=== PATIENT | male | born 1950 | race African-American/Black ===

== ENCOUNTER 2017-01-07 05:39 | Day surgery (SDC) | payer OTHER, MEDICARE ==
[2017-01-06 11:00] VITALS: BMI 30.7
[~2017-01-07] VITALS: Ht 180.3 cm; Wt 104.0 kg
[2017-01-07] VITALS (10 sets, daily range): BP systolic 132–160; BP diastolic 76–94; PULSE 82–91; RESP 10–18; Ht 180.3 cm; Wt 104.0 kg
--- NOTE | 2017-01-07 03:51 | PREOPHP ---
DATE OF ADMISSION: 01/07/2017 HISTORY OF PRESENT ILLNESS: This 66-year-old patient is admitted for elective cataract surgery of the left eye. The patient has had progressive deterioration of vision in the left eye over the past year and previously underwent cataract surgery on the right eye 1-2 years ago with good visual result. The patient has a positive systemic history of hypertension and diabetes mellitus. MEDICATIONS: Includes amlodipine, and metformin. ALLERGIES: PENICILLIN. PHYSICAL EXAMINATION: EYES: On examination, visual acuity with best correction is 20/25 in the right eye and 20/60 in the left eye. Slit lamp examination reveals a posterior chamber intraocular lens in the right eye and an advanced nuclear sclerotic cataract in the left eye. Applanation tonometry is 15 mmHg in both eyes. Examination of the retina appears within normal limits. DIAGNOSIS: Cataract, left eye. PLAN: Cataract extraction with lens implant, left eye. The risks and alternatives of surgery have been discussed with the patient as well as the hope for improvement of visual acuity leading to greater ability to perform activities of daily living. Patient understands this and agrees to proceed with surgery. Dictated By: Bao Garcia MD /[email or web address]/sloan /Document#: [id number]
[2017-01-07] MEDS ORDERED: DICLOFENAC 0.1% 2.5 ML OPH OPER SCH (06:00)
[2017-01-07] MEDS ORDERED: CIPROFLOXACIN 0.3% 2.5 ML OPH OPER SCH (06:00)
[2017-01-07] MEDS ORDERED: CYCLOPENTOLATE/PHENYLEPH 2 ML OPH OPER SCH (06:00)
[2017-01-07] MEDS ORDERED: TROPICAMIDE 1% 2 ML OPH OPER SCH (06:00)
[2017-01-07] MEDS ORDERED: GENTAMICIN 80 MG INJ ONE (06:04)
[2017-01-07] MEDS ORDERED: CARBACHOL 0.01% 1.5 ML OPH INJ ONE ×2 (06:04→07:17)
[2017-01-07] MEDS ORDERED: DEXAMETHASONE 4 MG/ML 1 ML INJ ONE (06:05)
[2017-01-07] MEDS ORDERED: LIDOCAINE 4% (MPF) 5 ML INJ ONE (06:05)
[2017-01-07] MEDS ORDERED: EPINEPHrine 1 MG INJ ONE (06:06)
[2017-01-07 06:17] LABS: ADD SCAN DIFF NO
[2017-01-07 06:20] LABS: ADD UMIC NO; UR ASCORBIC ACID NEGATIVE (NEGATIVE); UR BILIRUBIN (Dip) NEGATIVE (NEGATIVE); UR BLOOD (Dip) NEGATIVE (NEGATIVE); UR CLARITY CLEAR (CLEAR); UR COLOR YELLOW (YELLOW); UR GLUCOSE (Dip) NEGATIVE (NEGATIVE); UR KETONES (Dip) NEGATIVE (NEGATIVE); UR LEUKOCYTE ESTERASE (Dip) NEGATIVE Leu/ul (NEGATIVE); UR NITRITE (Dip) NEGATIVE (NEGATIVE); UR SPECIFIC GRAVITY (Dip) 1.015 (1.003-1.030); UR TOTAL PROTEIN (Dip) NEGATIVE (NEGATIVE); UR UROBILINOGEN (Dip) NEGATIVE (NEGATIVE)
[2017-01-07 06:21] LABS: BASOPHIL # 0.1 10^3/ul (0.0-0.1); BASOPHILS % 0.7 % (0.0-2.0); EOSINOPHILS # 0.3 10^3/ul (0.0-0.5); EOSINOPHILS % 3.4 % (0.0-7.0); HEMATOCRIT 42.1 % (42.0-52.0); HEMOGLOBIN 14.2 g/dl (14.0-18.0); LYMPHOCYTES # 4.1 10^3/ul (0.8-2.9); LYMPHOCYTES % 45.4 % (15.0-51.0); MEAN CORPUSCULAR HEMOGLOBIN 29.4 pg (29.0-33.0); MEAN CORPUSCULAR HGB CONC 33.7 g/dl (32.0-37.0); MEAN CORPUSCULAR VOLUME 87.2 fl (82.0-101.0); MEAN PLATELET VOLUME 10.5 fl (7.4-10.4); MONOCYTE # 0.6 10^3/ul (0.3-0.9); MONOCYTES % 6.4 % (0.0-11.0); NEUTROPHIL # 3.9 10^3/ul (1.6-7.5); NEUTROPHILS % 43.9 % (39.0-77.0); PLATELET COUNT 326 10^3/UL (140-415); RED BLOOD COUNT 4.83 10^6/ul (4.70-6.10); RED CELL DISTRIBUTION WIDTH 13.4 % (11.5-14.5)
[2017-01-07 06:38] LABS: INR 0.95; PROTIME 12.7 Sec (12.2-14.2)
[2017-01-07 06:39] LABS: PARTIAL THROMBOPLASTIN TIME 33.7 Sec (25.0-35.0)
[2017-01-07] MEDS ORDERED: CARBACHOL 0.01% 1.5 ML OPH INJ IO ONE (06:44)
[2017-01-07] MEDS ORDERED: GENTAMICIN 80 MG INJ INJ ONE (06:45)
[2017-01-07] MEDS ORDERED: DEXAMETHASONE 4 MG/ML 1 ML INJ INJ ONE (06:45)
[2017-01-07] MEDS ORDERED: HYALURONATE/CHONDROITIN 1ML OPH INJ IO ONE (06:46)
[2017-01-07 06:56] LABS: CREATININE 0.99 mg/dl (0.61-1.24); POTASSIUM 3.8 mmol/L (3.5-5.1)
[2017-01-07] MEDS ORDERED: HYALURONATE/CHONDROITIN 1ML OPH INJ ONE (07:17)
[2017-01-07] MEDS ORDERED: FENTAnyl 50 MCG/ML VIAL ONE (07:26)
[2017-01-07] MEDS ORDERED: METF1000 PO (07:37)
[2017-01-07] MEDS ORDERED: AMLO-147 PO (07:37)
[2017-01-07] MEDS ORDERED: GLIM4TAB PO (07:37)
[2017-01-07] MEDS ORDERED: LIDOCAINE 2% (SDV) 5 ML INJ ONE (07:39)
[2017-01-07] MEDS ORDERED: PROPOFOL 20 ML ONE (07:39)
[2017-01-07] MEDS ORDERED: FENTAnyl 50 MCG/ML VIAL IV PRN (08:00)
[2017-01-07] MEDS ORDERED: METOCLOPRAMIDE 10 MG INJ IV PRN (08:00)
[2017-01-07] MEDS ORDERED: DIPHENHYDRAMINE 50 MG INJ IV PRN (08:00)
[2017-01-07] MEDS ORDERED: HYDROmorphONE (0.2 MG/ML) 10ML SYG IV PRN ×2 (08:00)
[2017-01-07] MEDS ORDERED: LABETALOL HCL 20MG INJ IV PRN (08:00)
[2017-01-07] MEDS ORDERED: ONDANSETRON 4 MG INJ IV PRN (08:00)
[2017-01-07] MEDS ORDERED: MEPERIDINE 25 MG INJ IV PRN (08:00)
--- NOTE | 2017-01-07 17:37 | RADRPT ---
Vent Rate: 83 bpm RR Interval: 0 msec AK Interval: 158 msec QRS Duration: 86 msec QT Interval: 406 msec QTC Interval: 477 msec P-R-T [place]: 60 - 67 - 60 degrees Normal sinus rhythm Normal ECG Electronically Signed By: Len Harding [id number]
--- NOTE | 2017-01-15 06:42 | OPR ---
DATE OF OPERATION: 01/07/2017 PREOPERATIVE DIAGNOSIS: Cataract, left eye. POSTOPERATIVE DIAGNOSIS: Cataract, left eye. OPERATION PERFORMED: Cataract extraction, with lens implant, left eye. SURGEON: Bao Garcia. SIX SIGMA BLACK BELT ENGINEER: NONE ANESTHESIA: Local standby. ANESTHESIOLOGIST: OPERATION: Phacoemulsification with posterior chamber intraocular lens implant, left eye. PROCEDURE: The patient was brought to the operating room and placed on the table with an IV in place and the patient attached to an alarm security or surveillance monitor. Oxygen was given via face mask. After some intravenous sedation was administered, local anesthesia was given using Xylocaine 2% with epinephrine, mixed with Marcaine 0.5%. This was given in a lid block and retrobulbar injection. The patient was then prepped and draped in the usual sterile manner. A wire lid speculum was inserted between the lids of the left eye. A Superblade was used to enter the anterior chamber at the corneoscleral limbus at the 10:30 o'clock position. A separate incision was made using a 3.0-mm keratome which entered the corneoscleral junction at the 12 o'clock position. Through this 3- mm opening, an irrigating cystotome was introduced into the anterior chamber. The chamber was filled with Viscoat and an anterior capsulotomy was performed. Balanced salt solution was then used for hydrodissection of the lens. A phacoemulsification handpiece was then brought into the field and introduced into the anterior chamber. The lens nucleus was emulsified using a deep groove and cracking the nucleus into quadrants. Following this, each quadrant was aspirated and emulsified at the pupillary margin. After this was completed, the irrigation/aspiration handpiece was brought to the field, introduced into the posterior chamber, and the lens cortical material was removed. When this was completed, additional Viscoat was injected into the anterior and posterior chambers. The 3-mm opening had its internal lips enlarged, and then the posterior chamber intraocular lens measuring 17.0 diopters posterior chamber intraocular lens (Bausch and Lomb model LI61AO) was then injected into the posterior chamber using the lens injector system. After the leading haptic was introduced into the capsular bag and the lens optic was present in the center of the eye, the injector was removed and the trailing haptic was grasped with non-toothed forceps and introduced into the capsular fold superiorly. A Sinskey hook was then used to rotate the intraocular lens so that the lips were oriented in the horizontal meridian. One 10-0 nylon suture was placed across the wound. Prior to tying, the irrigation/aspiration handpiece was reintroduced into the anterior chamber to remove the Viscoat. Miochol was instilled to constrict the pupil, and then the 10-0 nylon suture was tied. The ends were cut short and then the knot was buried. Then, 0.5 mL of dexamethasone and 0.5 mL of gentamicin were injected into the sub-Tenon space in the inferior fornix. Ciloxan drops were then placed on the surface of the eye. The speculum was removed and a patch was applied. The patient then left the operating room in satisfactory condition. Dictated By: Bao Garcia MD /debby/julianne /Document#: [id number] AVERY
== END 2017-01-07 09:32 | disposition home or self-care (01) ==
LOC: SDS 05:39
PROVIDERS: ATTEND Ophthalmology
DX: H25.12 Age-related nuclear cataract, left eye (principal); E11.9 Type 2 diabetes mellitus without complications; I10 Essential (primary) hypertension; E66.9 Obesity, unspecified; Z68.32 Body mass index [BMI] 32.0-32.9, adult
CPT/HCPCS: 66984; 80048; 81003; 82962; 85025; 85610; 85730; 93005; J0171; J1100; J1580; J3010; V2632